=== PATIENT | male | born 1945 | race Caucasian/White ===

== ENCOUNTER 2024-03-16 15:28 | Emergency (ER) | payer MEDICARE, OTHER ==
[~2024-03-16] VITALS: Ht 167.6 cm; Wt 78.0 kg
[2024-03-16] MEDS ORDERED: CEPH-570 PO (15:41)
[2024-03-16 16:50] VITALS: BP 134/71; TEMP 98.1; O2SAT 97
[2024-03-17] MEDS ORDERED: CEPH-570 PO (11:19)
== END 2024-03-16 16:52 | disposition home or self-care (01) ==
LOC: ER 15:31
DX: S51.811A Laceration without foreign body of right forearm, initial encounter (principal); I10 Essential (primary) hypertension; Z88.1 Allergy status to other antibiotic agents; W26.9XXA Contact with unspecified sharp object(s), initial encounter; Y93.89 Activity, other specified; Y92.89 Other specified places as the place of occurrence of the external cause; Y99.8 Other external cause status